=== PATIENT | female | born 1960 | race Caucasian/White ===

== ENCOUNTER 2017-01-31 17:02 | Observation (INO) | payer OTHER ==
[~2017-01-31] VITALS: Ht 162.6 cm; Wt 69.4 kg
[~2017-01-31 17:02] MED LIST: ASPI-621 PO; COLC0.6T37 PO; LEVO250T23 PO; LISI-167 PO; LOSA50TA2 PO; NAPR500T PO; OLME20TA PO; SIMV10TA3 PO; SIMV20TA3 PO
[2017-01-31 17:40] LABS: BLOOD UREA NITROGEN 21 mg/dL (7-18)
[2017-01-31 17:42] LABS: ASPARTATE AMINO TRANSFERASE 19 U/L (15-37)
[2017-01-31] MEDS ORDERED: ASPIRIN 81 MG TABLET CHEW PO ONE (19:30)
[2017-01-31] MEDS ORDERED: ASPIRIN 81 MG TABLET CHEW ONE (19:33)
[2017-01-31] MEDS ORDERED: POLYETHYLENE GLYCOL 17 GM PACKET PO PRN (20:30)
[2017-01-31] MEDS ORDERED: ONDANSETRON ODT 4 MG PO PRN (20:30)
[2017-01-31] MEDS ORDERED: TRAZODONE 50MG TABLET PO PRN (20:30)
[2017-01-31] MEDS ORDERED: LABETALOL 5MG/ML, 20ML IV PRN (20:30)
[2017-01-31] MEDS ORDERED: BISACODYL 10 MG SUPP PR PRN (20:30)
[2017-01-31] MEDS ORDERED: ACETAMINOPHEN 325 MG TABLET PO PRN (20:30)
[2017-01-31] MEDS ORDERED: DOCUSATE 100 MG CAPSULE PO PRN (20:30)
[2017-01-31] MEDS ORDERED: ENOXAPARIN 40 MG/0.4 ML SQ SCH (20:30)
[2017-01-31 20:32] VITALS: BP 179/95
[2017-01-31 20:47] VITALS: BP 138/87
[2017-01-31] MEDS ORDERED: SIMVASTATIN 10 MG TABLET PO SCH (21:00)
[2017-01-31] MEDS ORDERED: LISINOPRIL 10 MG TABLET PO SCH (21:00)
[2017-01-31] MEDS ORDERED: ATORVASTATIN 40 MG TABLET PO SCH (21:30)
[2017-01-31] MEDS: SODIUM CHLORIDE 0.9% 1,000 ML IV SCH (22:24)
[2017-02-01 01:56] VITALS: BP 118/66
[2017-02-01 05:41] LABS: BLOOD UREA NITROGEN 21 mg/dL (7-18)
[2017-02-01] MEDS ORDERED: ASPIRIN 325 MG TABLET PO SCH (06:00)
[2017-02-01] MEDS: SODIUM CHLORIDE 0.9% 1,000 ML IV SCH ×2 (06:11→16:11)
[2017-02-01 07:16] VITALS: BP 140/78
[2017-02-01] MEDS ORDERED: GADOBUTROL 7.5 MMOL/7.5 ML PFS ONE (09:43)
[2017-02-01 14:03] VITALS: BP 138/80
[2017-02-01] MEDS ORDERED: ASPI-650 PO (17:43)
[2017-02-01] MEDS ORDERED: ASPI325T4 PO (17:48)
[2017-02-01] MEDS ORDERED: PNEUMOCOCCAL 23 VACCINE IM-VACC ONE (18:30)
== END 2017-02-01 18:43 | disposition home or self-care (01) ==
LOC: ED 19:39 → EDIP 20:12 → 4WST 20:27
PROVIDERS: ADMIT Internal Medicine; ATTEND Internal Medicine
DX: G45.9 Transient cerebral ischemic attack, unspecified (principal); R79.89 Other specified abnormal findings of blood chemistry; I10 Essential (primary) hypertension; F12.10 Cannabis abuse, uncomplicated; Z87.891 Personal history of nicotine dependence; Z86.79 Personal history of other diseases of the circulatory system; Z23 Encounter for immunization
CPT/HCPCS: 36415; 70450; 70553; 71010; 80048; 80053; 80061; 82607; 84443; 85025; 85610; 85730; 90471; 90732; 93005; 93306; 93880; 96360; 96361; 96372; 97163; 97165; 99285; A9585; G0378; J1650; J7030